=== PATIENT | female | born 1960 | race Caucasian/White ===

== ENCOUNTER → 2017-11-30 | Outpatient (CLI) | payer BC, OTHER ==
[~2017-11-30] MED LIST: DIOVAN160 MG PO; LEXAPRO20 MG PO; MULTIPLE VITAM1 EAC3 PO; NORCO 5-325 TA1 EACH PO
== END ==
LOC: RAD 10:14
DX: Z12.31 Encounter for screening mammogram for malignant neoplasm of breast (principal)

== ENCOUNTER → 2019-04-05 | Outpatient (CLI) | payer BC, OTHER | LOC: NUC 04:21 → RAD 15:07 → NUC 15:08 | DX: Z12.31 Encounter for screening mammogram for malignant neoplasm of breast (principal); M85.80 Other specified disorders of bone density and structure, unspecified site; M47.816 Spondylosis without myelopathy or radiculopathy, lumbar region; Z91.89 Other specified personal risk factors, not elsewhere classified; Z78.0 Asymptomatic menopausal state ==

== ENCOUNTER → 2019-04-09 | Outpatient (CLI) | payer BC, OTHER | LOC: RAD 01:09 | DX: R92.2 Inconclusive mammogram (principal) ==

== ENCOUNTER → 2020-02-13 | Outpatient (CLI) | payer BC, OTHER | LOC: LAB 02-12 09:16 | PROVIDERS: ATTEND Family Medicine | DX: R05 Cough (principal); Z20.828 Contact with and (suspected) exposure to other viral communicable diseases ==

== ENCOUNTER → 2020-07-02 | Outpatient (CLI) | payer BC, OTHER | LOC: BC 13:51 | PROVIDERS: ATTEND Family Medicine | DX: Z12.31 Encounter for screening mammogram for malignant neoplasm of breast (principal) ==

== ENCOUNTER → 2021-10-07 | Outpatient (CLI) | payer BC, OTHER | LOC: NUC 08:59 | PROVIDERS: ATTEND Family Medicine | DX: Z12.31 Encounter for screening mammogram for malignant neoplasm of breast (principal); Z78.0 Asymptomatic menopausal state ==

== ENCOUNTER → 2021-10-07 | Outpatient (CLI) | payer OTHER | LOC: CAT | PROVIDERS: ATTEND Family Medicine | DX: Z13.6 Encounter for screening for cardiovascular disorders (principal); I25.10 Atherosclerotic heart disease of native coronary artery without angina pectoris; E78.00 Pure hypercholesterolemia, unspecified ==

== ENCOUNTER → 2021-10-14 | Outpatient (CLI) | payer BC, OTHER | LOC: SJCVCIMAG 08:28 | PROVIDERS: ATTEND Family Medicine | DX: I25.3 Aneurysm of heart (principal); I10 Essential (primary) hypertension; E83.52 Hypercalcemia ==